=== PATIENT | female | born 1995 | race Two or more races ===

== ENCOUNTER 2021-11-20 07:43 | Emergency (ER) | payer OTHER ==
[2021-11-20 07:57] VITALS: BP 107/68; PULSE 84; TEMP 98; BMI 45.1
== END 2021-11-20 09:18 | disposition home or self-care (01) ==
LOC: JER 07:43 → JERFT 07:43
DX: S00.35XA Superficial foreign body of nose, initial encounter (principal); Y99.8 Other external cause status
CPT/HCPCS: 99282-25

== ENCOUNTER 2022-02-16 12:44 | Emergency (ER) | payer OTHER ==
[2022-02-16 13:05] VITALS: BP 117/73; PULSE 93; TEMP 98.3; BMI 43.8
[2022-02-16 15:52] LABS: BASO % 0.4 % (0-2.0); HEMATOCRIT 40.7 % (32.4-45.2); HEMOGLOBIN 13.7 GM/dL (10.7-15.3); LYMPH % 24.2 % (8-40); MCH 28.5 pg (25.7-33.7); MCHC 33.6 g/dl (32.0-36.0); MEAN CELL VOLUME 84.7 fl (80-96); MEAN PLT VOLUME 7.1 fl (7.5-11.1); MONO % 8.3 % (3.8-10.2); NEUT % 64.1 % (42.8-82.8); PLATELET COUNT 364 10^3/uL (134-434); RBC 4.81 M/mm3 (3.60-5.2); RDW 14.2 % (11.6-15.6); WHITE BLOOD COUNT 9.8 K/mm3 (4.0-10.0)
[2022-02-16 16:00] LABS: EPI CELLS >36 /uL (0-25.1); HCG,QUALITATIVE URINE NEGATIVE; HYALINE CASTS 2 /uL (0-3.1); URINE APPEARANCE CLOUDY; URINE BACTERIA 4342 /uL (0-1359); URINE BILIRUBIN NEGATIVE (NEGATIVE); URINE COLOR YELLOW; URINE GLUCOSE (UA) NEGATIVE (NEGATIVE); URINE KETONE NEGATIVE (NEGATIVE); URINE LEUK ESTERASE 2+ (NEGATIVE); URINE NITRITE NEGATIVE (NEGATIVE); URINE PROTEIN NEGATIVE (NEGATIVE); URINE UROBILINOGEN 0.2 mg/dL (0.2-1.0); URINE WBC 417 /uL (0-25.8)
[2022-02-16 16:21] LABS: ALBUMIN 3.9 g/dl (3.4-5.0); BLOOD UREA NITROGEN 9.5 mg/dL (7-18); CALCIUM 8.8 mg/dL (8.5-10.1)
[2022-02-16 16:25] LABS: CREATININE 0.7 mg/dL (0.55-1.3)
[2022-02-16 16:26] LABS: BILIRUBIN,TOTAL 0.2 mg/dL (0.2-1)
== END 2022-02-16 18:45 | disposition home or self-care (01) ==
LOC: JER 12:44
DX: N30.00 Acute cystitis without hematuria (principal)
CPT/HCPCS: 36415; 76830-TC; 80053; 81003; 84703; 85025; 87086; 87491; 87591; 99284-25